=== PATIENT | female | born 1975 | race Caucasian/White ===

== ENCOUNTER 2023-08-12 16:49 | Outpatient (CLI) | payer BC, SELFPAY ==
--- NOTE | 2023-08-12 17:00 | CRLHL7_ITS ---
For Patients: As a result of the Century Cures Act, medical imaging exams and procedure reports are released immediately into your electronic medical record. You may view this report before your referring provider. If you have questions, please contact your health care provider. CLINICAL HISTORY: MENORRHAGIA TECHNIQUE: 2D ko scale and color Doppler images were acquired of the pelvis using a transvaginal approach. FINDINGS: On transvaginal imaging, the myometrium has a normal uniform echotexture. The uterus measures 8.9 x 4.0 x 5.5 cm. The endometrial lining appears normal and measures 2.8 mm in thickness. The left ovary measures 2.4 x 1.6 x 1.6 cm in size and the right ovary measures 3.0 x 2.1 x 2.2 cm. The ovaries demonstrate normal arterial and venous blood flow on color Doppler analysis. There are no suspicious fluid collections within the cul-de-sac. IMPRESSION: No abnormalities of the uterus or ovaries identified. Dictated by Jose Eduardo Gutierrez MD @ 08/14/2023 10:22:10 AM (Electronically Signed)
== END 2023-08-12 16:50 | disposition home or self-care (01) ==
LOC: US 16:50
PROVIDERS: PCP Family Medicine; Visit Provider Physician Assistant
DX: N92.0 Excessive and frequent menstruation with regular cycle (principal)
CPT/HCPCS: 76830

== ENCOUNTER 2023-08-13 07:29 | Outpatient (CLI) | payer BC, SELFPAY | END 2023-08-13 07:30 | disposition home or self-care (01) | LOC: NFLDREF 08-14 10:14 | PROVIDERS: PCP Family Medicine; Referring Provider Family Medicine; Visit Provider Physician Assistant | DX: Z13.1 Encounter for screening for diabetes mellitus (principal); Z13.220 Encounter for screening for lipoid disorders; Z13.29 Encounter for screening for other suspected endocrine disorder | CPT/HCPCS: 80061; 82947; 84443 ==

== ENCOUNTER 2023-08-29 08:22 | Outpatient (CLI) | payer BC, SELFPAY ==
--- NOTE | 2023-08-29 09:36 | W.ANESCHARGE ---
Anesthesia Charges Start Date/Time Anesthesia Start Date: 08/29/23 Anesthesia Start Time: 09:08 Stop Date/Time Anesthesia Stop Date: 08/29/23 Anesthesia Stop Time: 09:33
--- NOTE | 2023-08-29 10:06 | W.ANESCHARGE ---
Anesthesia Charges Start Date/Time Anesthesia Start Date: 08/29/23 Anesthesia Start Time: 09:08 Stop Date/Time Anesthesia Stop Date: 08/29/23 Anesthesia Stop Time: 09:33
== END 2023-08-29 08:23 | disposition home or self-care (01) ==
LOC: OP CLINIC 08:22
PROVIDERS: PCP Family Medicine; Visit Provider Internal Medicine
DX: Z12.11 Encounter for screening for malignant neoplasm of colon (principal); K64.8 Other hemorrhoids
CPT/HCPCS: 00811; 00812; 45378; J2704

== ENCOUNTER 2023-11-07 14:27 | Outpatient (CLI) | payer BC, SELFPAY ==
--- NOTE | 2023-11-07 14:40 | MM_ITS ---
Patient: DM DAN Facility:?[facility] Patient ID:?[id number] Site Patient ID:?[id number]. Site :?[id number] Study:?XRay-Breast Bilateral 3D-11/07/2023 2:59:57 PM Ordering Physician:Vineet Final Report: BILATERAL SCREENING MAMMOGRAM WITH COMPUTER-AIDED DETECTION AND TOMOSYNTHESIS TECHNIQUE: CC and MLO views were obtained. These mammographic images have been obtained using full-field digital technique. These mammographic images were interpreted with the benefit of computer-aided detection. Breast Tomosynthesis was used in this interpretation. COMPARISON FILM: 02/16/21, 07/30/2019, 08/12/2017. FINDINGS: There are scattered areas of fibroglandular density. IMPRESSION: There is no radiographic evidence for malignancy. ASSESSMENT: BI-RADS Category 1: Negative RECOMMENDATION: Routine screening mammogram in 1 year. A lay language report of this examination will be provided to the patient. Jose Eduardo Gutierrez M.D. Diagnostic Radiologist [email or web address] DSM/sp R& Transcribed: 5:20 p.m. SP/Dictated by: Jose Eduardo Gutierrez MD @ 11/10/2023 9:31:00 AM Signed by:?Jose Eduardo Gutierrez MD @11/11/2023 5:12:57 AM (Electronic Signature)
== END 2023-11-07 14:28 | disposition home or self-care (01) ==
LOC: MAMMO 14:28
PROVIDERS: PCP Family Medicine; Visit Provider Physician Assistant
DX: Z12.31 Encounter for screening mammogram for malignant neoplasm of breast (principal)
CPT/HCPCS: 77063; 77067

== ENCOUNTER 2024-11-16 07:57 | Outpatient (CLI) | payer OTHER, BC, SELFPAY | END 2024-11-16 07:58 | disposition home or self-care (01) | LOC: MRI 07:58 | PROVIDERS: PCP Family Medicine; Visit Provider Internal Medicine | DX: M54.12 Radiculopathy, cervical region (principal); M50.222 Other cervical disc displacement at C5-C6 level; M54.2 Cervicalgia | CPT/HCPCS: 72141 ==

== ENCOUNTER 2024-12-06 10:27 | Outpatient (CLI) | payer BC, SELFPAY | END 2024-12-06 10:28 | disposition home or self-care (01) | PROVIDERS: PCP Family Medicine; Visit Provider Family Medicine | DX: Z12.4 Encounter for screening for malignant neoplasm of cervix (principal) | CPT/HCPCS: 87624; 87625; 88141; 88142 ==

== ENCOUNTER 2024-12-07 09:13 | Outpatient (CLI) | payer BC, SELFPAY ==
[2024-12-13 21:50] LABS: HPV Source Cervix; HPV, High Risk by TMA Not Detected
== END 2024-12-07 09:14 | disposition home or self-care (01) ==
LOC: LKVREF 09:14
PROVIDERS: PCP Family Medicine; Visit Provider Family Medicine
DX: Z11.51 Encounter for screening for human papillomavirus (HPV) (principal)
CPT/HCPCS: 87624; 87625

== ENCOUNTER 2025-01-28 14:52 | Outpatient (CLI) | payer BC, SELFPAY ==
--- NOTE | 2025-01-28 14:40 | CRLHL7_ITS ---
For Patients: As a result of the Century Cures Act, medical imaging exams and procedure reports are released immediately into your electronic medical record. You may view this report before your referring provider. If you have questions, please contact your health care provider. INDICATION: BILATERAL SCREENING MAMMOGRAM, ASYMPTOMATIC 49 Y/O FEMALE COMPARISON: 11/07/2023, 02/16/2021, 07/30/2019 TECHNIQUE: Digital mammogram in CC and MLO projections including computer-aided detection (CAD) and tomosynthesis. BREAST COMPOSITION: There are scattered areas of fibroglandular density. FINDINGS: No suspicious findings. ASSESSMENT: BI-RADS 1 Negative RECOMMENDATION: Annual screening mammogram. A lay language report of this examination will be provided to the patient. Dictated by: Jose Eduardo Gutierrez MD @ 02/01/2025 09:10:15 (Electronically Signed)
== END 2025-01-28 14:53 | disposition home or self-care (01) ==
LOC: MAMMO 14:53
PROVIDERS: PCP Family Medicine; Visit Provider Internal Medicine
DX: Z12.31 Encounter for screening mammogram for malignant neoplasm of breast (principal)
CPT/HCPCS: 77063; 77067

== ENCOUNTER 2025-03-21 08:15 | Outpatient (RCR) | payer OTHER, BC, SELFPAY ==
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
--- NOTE | 2025-05-26 15:17 | REH.OT ---
d/c pt from OT. Pt did not return to sessions. Pt was only seen 4x in 2 months with minimal to no progress made. Pt to return to ortho if UE pain and weakness persists.
== END 2025-05-26 15:27 | disposition home or self-care (01) ==
PROVIDERS: PCP Family Medicine; Visit Provider Internal Medicine
DX: M19.049 Primary osteoarthritis, unspecified hand (principal); Z51.89 Encounter for other specified aftercare
CPT/HCPCS: 97035; 97110; 97140; 97162; 97165; 97530; X5282